=== PATIENT | male | born 1950 | race Caucasian/White ===

== ENCOUNTER → 2021-02-19 | Emergency (ER) | payer MEDICARE, OTHER ==
[~2021-02-19] VITALS: Ht 182.9 cm; Wt 104.3 kg
[~2021-02-19] MED LIST: HYDROMORPHONE 1 MG/1 ML DISP.SYRIN ONE; HYDROMORPHONE INJ 2 MG/ML DISP.SYRIN IV ONE; ONDANSETRON HCL/PF 4 MG/2 ML VIAL IVP ONE; ONDANSETRON HCL/PF 4 MG/2 ML VIAL ONE
--- NOTE | 2021-02-19 17:00 | NUR ---
LEONOR MORALES From [facility] "started feeling achy after-total body pain". On room air, breathing evenly and unlabored. Connected to the monitor and pulse ox. kept comfortable, will continue to monitor accordingly.
--- NOTE | 2021-02-19 17:53 | NUR ---
Sarbjit lyon in [place] - 02/19/21 at 1754 by KISHAN Crystal ([facility]) [phone] phone #[phone]
[2021-02-19 19:24] LABS: BASOPHILS # (AUTO) 0.2 K/uL (0.0-0.2); BASOPHILS % (AUTO) 1.8 % (0.0-2.0); EOSINOPHILS % (AUTO) 3.2 % (0.0-6.0); HEMATOCRIT 32 % (39-51); HEMOGLOBIN 10.4 g/dL (13.5-17.5); LYMPHOCYTES # (AUTO) 1.5 K/uL (0.8-4.8); LYMPHOCYTES % (AUTO) 17.7 % (20.0-44.0); MEAN CORPUSCULAR HGB CONC 32 g/dl (31.0-36.0); MEAN CORPUSCULAR VOLUME 103 fL (80-96); MONOCYTES # (AUTO) 0.7 K/uL (0.1-1.30); MONOCYTES % (AUTO) 8.2 % (2.0-12.0); NEUTROPHILS # (AUTO) 5.8 K/uL (1.8-8.9); NEUTROPHILS % (AUTO) 69.1 % (43.0-81.0); PLATELET COUNT (AUTO) 161 K/uL (150-450); RED BLOOD CELL COUNT(AUTO) 3.12 MIL/uL (4.5-6.0); WHITE BLOOD COUNT (AUTO) 8.4 K/uL (4.3-11.0)
[2021-02-19 19:32] LABS: CALCIUM, SERUM 8.5 mg/dL (8.5-10.1); CREATININE 4.6 mg/dL (0.6-1.3); POTASSIUM 4.3 mmol/L (3.5-5.1)
--- NOTE | 2021-02-19 19:56 | NUR ---
CALLED [facility] FOR TRANSPORT ETA 60 MINS.
--- NOTE | 2021-02-19 20:02 | NUR ---
REPORT GIVEN TO MYRNA AT [facility]
--- NOTE | 2021-02-19 20:59 | NUR ---
pt discharged back to snf in stable condition. written and verbal discharge instructions provided to patient and patient verbalized understanding. patient IV line removed and transported with all belongings. vital signs stable at time of transport.
[2021-02-19 21:00] VITALS: BP 101/59
== END ==
LOC: ER 16:40
DX: M79.601 Pain in right arm (principal); M79.602 Pain in left arm; M79.605 Pain in left leg; M79.604 Pain in right leg; I12.0 Hypertensive chronic kidney disease with stage 5 chronic kidney disease or end stage renal disease; E11.22 Type 2 diabetes mellitus with diabetic chronic kidney disease; N18.6 End stage renal disease; D63.1 Anemia in chronic kidney disease; Z99.2 Dependence on renal dialysis; Z89.612 Acquired absence of left leg above knee; Z88.8 Allergy status to other drugs, medicaments and biological substances; Z88.6 Allergy status to analgesic agent
CPT/HCPCS: 36569; 71045; 80048; 85025; 96374; 96375; 99285; J1170; J2405; 36415